=== PATIENT | female | born 1950 | race Caucasian/White ===

== ENCOUNTER 2022-09-21 15:30 | Emergency (ER) | payer OTHER ==
--- OUTSIDE RECORDS SUMMARY | 2022-09-21 15:33 | XMS REPORT | Continuity of Care Document ---
:1950 Author Organization [facility] Address [address] [place] [id number] Care Team Providers Name Role Phone Randall Attending Clinician Unavailable Randall Admitting Clinician Unavailable Payers Payer Name Policy Type Policy Number Effective Date Expiration Date S awa MEDICARE [place]: [id number] 2014 [employer] 00:00:00 [employer] [id number] [employer] (MEDICARE SUPPLEMENT) Problems This patient has no known problems. Allergies, Adverse Reactions, Alerts This patient has no known allergies or adverse reactions. Medications This patient has no known medications. Procedures This patient has no known procedures. Encounters Start End Encounter Admission Attending Care Care Encounter Source Date/Time Date/Time Type Type Clinicians Facility Department ID 2020-02-11 2020-02-11 Outpatient [id number] [place] 02:39:00 02:39:00 [id number] Results This patient has no known results.
--- NOTE | 2022-09-21 16:23 | RAD REPORT ---
EXAM DESCRIPTION: Stast Single View09/21/2022 4:13 pm CLINICAL HISTORY: CHEST PAIN COMPARISON: Chest Pa And Lat (2 Views) dated 02/09/2020; Chest Pa And Lat (2 Views) dated 05/06/2019; CHEST PA AND LAT 2 VIEW dated 12/24/2012 TECHNIQUE: Portable AP view of the chest. FINDINGS: The lungs are clear apart from mild left basilar atelectasis or early airspace disease. N o pneumothorax or effusion. The cardiomediastinal contours are unremarkable. IMPRESSION: Mild left basilar atelectasis or early airspace disease. No other acute cardiopulmonary process.
[2022-09-21 16:58] LABS: Absolute Lymphocytes (CBC) 1.2 K/uL (0.7-4.9); Hematocrit 44.6 % (36.0-45.0); Lymphocytes % 13.4 % (15.3-44.8); MPV 7.4 fL (7.6-11.3); RBC Red Blood Cell Count 4.85 M/uL (3.86-4.86)
[2022-09-21] MEDS ORDERED: MAGNES/ALUMIN/SIMET 30ML UCUP ONE (16:58)
[2022-09-21] MEDS ORDERED: NA CHLORIDE 0.9% 500 ML ONE (16:59)
[2022-09-21] MEDS ORDERED: PANTOPRAZOLE 40 MG INJ ONE (16:59)
[2022-09-21] MEDS ORDERED: ONDANSETRON 4 MG/2 ML VIAL ONE (16:59)
[2022-09-21] MEDS ORDERED: MORPHINE 4 MG/ML SYR ONE ×2 (16:59→19:59)
[2022-09-21 17:01] LABS: Protime INR 0.83
[2022-09-21 17:14] LABS: Albumin 3.9 g/dL (3.4-5.0); Bilirubin Direct 0.3 mg/dL (0-0.2); Bilirubin Indirect, Calculated 0.9 mg/dL (0.2-0.8); Bilirubin Total 1.2 mg/dL (0.2-1.0); Protein, Total 7.8 g/dL (6.4-8.2); Troponin High Sensitivity 3.8 pg/mL (<58.9)
--- NOTE | 2022-09-21 19:08 | RAD REPORT ---
EXAM DESCRIPTION: CT - Angio Aorta For Dissection - 09/21/2022 5:58 pm CLINICAL HISTORY: chest pain/abd pain COMPARISON: No comparisons TECHNIQUE: Dynamically enhanced 3 mm thick images of the chest, abdomen, and upper pelvis were obtai emily during administration of approximately 100mL Isovue 370 IV contrast. Sagittal and coronal reconst ructions as well as maximal intensity projection reconstruction were generated and reviewed per an [facility] angiography protocol. All CT scans are performed using dose optimization technique as appropriate and may include automated exposure control or mA/KV adjustment according to patient size. FINDINGS: Aorta is normal in diameter with no dissection or other acute aortic findings. Reconstruct ion images show no significant findings. Pulmonary arteries are normal as well. No mass or infiltrate in the lung parenchyma. No pleural thickening, pleural effusion or pneumothorax . No abnormal mediastinal or hilar mass or lymphadenopathy seen. Mildly prominent posterior mediastinal lymph nodes, nonspecific, and likely reactive. No chest wall mass or abnormal axillary lymphadenopat hy. Celiac, SMA and renal arteries show no suspicious findings. Mild fluid filling of the cecum and mild wall prominence along the ascending colon, nonspecific, of may relate to mild colitis or diarrheal st ate. Solid abdominal viscera and bowel show no other significant findings. No mass or abnormal lympha denopathy. IMPRESSION: No acute abnormalities on CT angiogram of the aorta. Mild fluid filling of the cecum and mild wall prominence along the ascending colon, nonspecific, of m ay relate to mild colitis or diarrheal state. Nonspecific mildly prominent posterior mediastinal lymph nodes, nonspecific, and likely reactive.
--- NOTE | 2022-09-21 19:42 | EDPHYS ---
Physician Documentation [facility] Name: Se Sandoval Age: 71 yrs Sex: Female : 1950 Arrival Date: 09/21/2022 Time: 15:30 Bed 8 Private MD: ED Physician Scar Almaguer HPI: 09/21 16:01 This 71 yrs old Female presents to ER via Ambulatory with complaints of Abd pain, Chest rn Pain. 16:01 The patient or guardian reports chest pain that is located primarily in the substernal rn area. Onset: yesterday. 16:01 The patient presents with abdominal pain in the epigastric area. Onset: The rn symptoms/episode began/occurred yesterday. The symptoms radiate to chest. Associated signs and symptoms: Pertinent positives: nausea, Pertinent negatives: blood in stools, fever, shortness of breath, vomiting blood. The symptoms are described as achy. Modifying factors: The symptoms are alleviated by nothing, the symptoms are aggravated by swallowing. Severity of pain: At its worst the pain was moderate in the emergency department the pain is unchanged. The patient has not experienced similar symptoms in the past. The patient has been recently seen by a physician:. Pt reports abdominal pain that began yesterday, radiates into chest, assoc with nausea. No vomiting. [facility] and thought to be gastroenteritis, sent zofran that is helping a little. Reports pain with swallowing. No blood in stool. No diarrhea. . Historical: - Allergies: 15:55 No Known Allergies; nj1 - PMHx: 15:55 Hypercholesterolemia; Depressive disorder; Sleep apnea; Insomnia; nj1 - PSHx: 15:55 Partial hysterectomy; Deviated septum surgery; nj1 - Immunization history:: Client reports having NOT received the Covid vaccine. - Social history:: Smoking status: Patient denies any tobacco usage or history of. - Family history:: not pertinent. - Hospitalizations: : No recent hospitalization is reported. ROS: 16:01 Constitutional: Negative for fever, chills, and weight loss, Eyes: Negative for injury, rn pain, redness, and discharge, Cardiovascular: + chest pain Respiratory: Negative for shortness of breath, cough, wheezing, and pleuritic chest pain, Abdomen/GI: + abd pain and nausea MS/Extremity: Negative for injury and deformity, Skin: Negative for injury, rash, and discoloration, Neuro: Negative for headache, weakness, numbness, tingling, and seizure. Exam: 16:01 Constitutional: This is a well developed, well nourished patient who is awake, alert, rn and in no acute distress. Head/Face: Normocephalic, atraumatic. Cardiovascular: Tachycardic, regular. No pulse deficits. Respiratory: No increased work of breathing, no retractions or nasal flaring. Abdomen/GI: soft, + epigastric tenderness Skin: Warm, dry MS/ Extremity: Pulses equal, no cyanosis. Neuro: Awake and alert, GCS 15 Vital Signs: 15:45 BP 121 / 81; Pulse 104; Resp 18; Temp 98.5; Pulse Ox 100% ; Weight 62.14 kg; Height 5 nj1 ft. 4 in. ; Pain 1/10; 17:05 BP 128 / 80; Pulse 98; Resp 19; Pulse Ox 98% on R/A; iw 18:31 BP 140 / 80; Pulse 97; Resp 16; Pulse Ox 98% on R/A; iw 20:02 BP 140 / 85; Pulse 89; Resp 16; Pulse Ox 98% on R/A; kl 15:45 Body Mass Index 23.51 (62.14 kg, 162.56 cm) nj1 15:45 Pain Scale: Adult nj1 MDM: 15:38 Patient medically screened. rn 19:38 Differential diagnosis: cholecystitis, Cholelithiasis, gastritis, gastroesophageal rn reflux disease, non-specific abd pain, pancreatitis, Peptic Ulcer Disease, Perf. Duodenal Ulcer, Perf. Gastric Ulcer. Data reviewed: vital signs, nurses notes, lab test result(s), radiologic studies, CT scan, ultrasound, and as a result, I will discharge patient. Counseling: I had a detailed discussion with the patient and/or guardian regarding: the historical points, exam findings, and any diagnostic results supporting the discharge/admit diagnosis, lab results, radiology results, the need for outpatient follow up, to return to the emergency department if symptoms worsen or persist or if there are any questions or concerns that arise at home. 19:40 Response to treatment: the patient's symptoms have mildly improved after treatment, and rn as a result, I will discharge patient. Special discussion: Based on the patient's history, exam, and Dx evaluation, there is no indication for emergent intervention or inpatient Tx. It is understood by the patient/guardian that if the Sx's persist or worsen they need to return immediately for re-evaluation. Based on the patient's Hx, exam, and Dx evaluation, there is no indication for emergent surgery or inpatient Tx. It is understood by the patient/guardian that if the Sx's persist or worsen they need to return immediately for re-evaluation. I discussed with the patient/guardian in detail that at this point there is no indication for admission to the hospital. It is understood, however, that if the symptoms persist or worsen the patient needs to return immediately for re-evaluation. ED course: No acute findings in imaging other than possible colitis. Story consistent with possible gastritis/duodenitis. U/S neg for acute gallbladder findings. Will dc home with abx for colitis, prn zofran, prn pain meds, and protonix prescription. . 19:46 ED course: Prescriptions given to to take to pharmacy before pharmacy closes. . 09/21 15:38 Order name: Basic Metabolic Panel; Complete Time: 17:09/21 15:38 Order name: CBC with Diff; Complete Time: 17:09/21 15:38 Order name: LFT's; Complete Time: 17:09/21 15:38 Order name: NT PRO-BNP; Complete Time: 17:09/21 15:38 Order name: PT-INR; Complete Time: 17:09/21 15:38 Order name: Troponin HS; Complete Time: 17:09/21 15:38 Order name: XRAY Chest (1 view); Complete Time: 17:09/21 15:57 Order name: CT Aorta for Dissection; Complete Time: 19:09/21 17:26 Order name: US Abdomen Limited; Complete Time: 19:44 09/21 15:38 Order name: EKG; Complete Time: 15:39 09/21 15:38 Order name: EKG - Nurse/Tech; Complete Time: 16:09/21 15:38 Order name: IV Saline Lock; Complete Time: 17:09/21 15:38 Order name: Labs collected and sent; Complete Time: 17:09/21 15:38 Order name: O2 Per Protocol; Complete Time: 17: rn 09/21 15:38 Order name: O2 Sat Monitoring; Complete Time: 17:05 rn Administered Medications: 17:04 Drug: Pantoprazole IVP 40 mg Route: IVP; Site: right antecubital; iw 20:01 Follow up: Response: No adverse reaction kl 17:05 Drug: morphine IVP or IV 4 mg Route: IVP; Infused Over: 4 mins; Site: right antecubital;iw 17:05 Drug: Ondansetron IVP 4 mg Route: IVP; Site: right antecubital; iw 17:05 Drug: NS 0.9% IV 500 ml Route: IV; Rate: bolus; Site: right antecubital; iw 17:13 Not Given (viscous lidocaine unavailablee): GI Cocktail without - (Maalox PO iw Suspension 30 ml, Lidocaine Mucous Membrane Liquid 2 % 15 ml) PO once 17:13 Drug: Alum-Mag Hydroxide-Simeth PO Suspension (200 mg-200 mg-20 mg/5 mL) 30 ml Route: iw PO; 17:42 Follow up: Response: No adverse reaction iw 20:01 Drug: morphine IVP or IV 4 mg Route: IVP; Infused Over: 4 mins; Site: right antecubital;kl Disposition Summary: 09/21/22 19:42 Discharge Ordered Location: Home rn Problem: new rn Symptoms: have improved rn Condition: Stable rn Diagnosis - Upper abdominal pain, unspecified rn - Acute gastritis without bleeding rn - Infectious gastroenteritis and colitis, unspecified rn Followup: rn - With: Real Hooper MD - When: As needed - Reason: Recheck today's complaints, Re-evaluation by your physician Discharge Instructions: - Discharge Summary Sheet rn - Abdominal Pain, Adult rn - Gastritis, Adult rn - Gastroesophageal Reflux Disease, Adult rn - Colitis rn Forms: - Medication Reconciliation Form rn - Thank You Letter rn - [employer] finance accounting internship - Prescription Opioid Use rn - [email or web address] rn Prescriptions: - ondansetron 4 mg Oral Tablet,disintegrating - take 1 tablet by ORAL route every 8 hours As needed; 15 tablet; Refills: 0, rn Product Selection Permitted - Flagyl 500 mg Oral Tablet - take 1 tablet by ORAL route every 8 hours for 10 days; 30 tablet; Refills: 0, rn Product Selection Permitted - Protonix 40 mg Oral Tablet - take 1 tablet by ORAL route once daily; 30 tablet; Refills: 0, Product rn Selection Permitted - Cipro 500 mg Oral Tablet - take 1 tablet by ORAL route every 12 hours for 10 days; 20 tablet; Refills: 0, rn Product Selection Permitted - Tramadol 50 mg Oral Tablet - take 1 tablet by ORAL route every 8 hours as needed; 12 tablet; Refills: 0, rn Product Selection Permitted Signatures: Dispatcher [employer] Brenna Lan RN RN kl Williams, Irene, RN RN iw Nieto, Roman, MD MD rn Jaco, Norma, RN RN nj1
--- NOTE | 2022-09-21 19:42 | ER ---
Nurse's Notes [facility] Name: Se Sandoval Age: 71 yrs Sex: Female : 1950 Arrival Date: 09/21/2022 Time: 15:30 Bed 8 Private MD: Diagnosis: Upper abdominal pain, unspecified;Acute gastritis without bleeding;Infectious gastroenteritis and colitis, unspecified Presentation: 09/21 15:45 Chief complaint: Patient states: Chest pain since last night, worse today, seems to go nj1 away at times, worsens when swallowing. Pt states she was having abdominal pain Sunday, had a tele consult yesterday, advised to come to ED if worse. Coronavirus screen: Vaccine status: Patient reports being unvaccinated. Ebola Screen: Patient denies travel to an Ebola-affected area in the 21 days before illness onset. Initial Sepsis Screen: Does the patient meet any 2 criteria? HR > 90 bpm. No. Patient's initial sepsis screen is negative. Does the patient have a suspected source of infection? No. Patient's initial sepsis screen is negative. Risk Assessment: Do you want to hurt yourself or someone else? Patient reports no desire to harm self or others. Onset of symptoms was September 17, 2022. 15:45 Method Of Arrival: Ambulatory [facility] 15:45 Acuity: DAHLIA 3 [facility] Historical: - Allergies: 15:55 No Known Allergies; nj1 - PMHx: 15:55 Hypercholesterolemia; Depressive disorder; Sleep apnea; Insomnia; nj1 - PSHx: 15:55 Partial hysterectomy; Deviated septum surgery; [facility] - Immunization history:: Client reports having NOT received the Covid vaccine. - Social history:: Smoking status: Patient denies any tobacco usage or history of. - Family history:: not pertinent. - Hospitalizations: : No recent hospitalization is reported. Screenin:32 [facility] ED Fall Risk Assessment (Adult) History of falling in the last 3 months, iw including since admission Score/Fall Risk Level 0 - 2 = Low Risk. Abuse screen: Denies threats or abuse. Denies injuries from another. Nutritional screening: No deficits noted. Tuberculosis screening: No symptoms or risk factors identified. Assessment: 17:30 Reassessment: Patient appears in no apparent distress at this time. Patient and/or iw family updated on plan of care and expected duration. Pain level reassessed. Patient is alert, oriented x 3, equal unlabored respirations, skin warm/dry/pink. 20:04 Reassessment: Patient appears in no apparent distress at this time. Patient states kl feeling better. Patient states symptoms have improved. Vital Signs: 15:45 BP 121 / 81; Pulse 104; Resp 18; Temp 98.5; Pulse Ox 100% ; Weight 62.14 kg; Height 5 nj1 ft. 4 in. ; Pain 1/10; 17:05 BP 128 / 80; Pulse 98; Resp 19; Pulse Ox 98% on R/A; iw 18:31 BP 140 / 80; Pulse 97; Resp 16; Pulse Ox 98% on R/A; iw 20:02 BP 140 / 85; Pulse 89; Resp 16; Pulse Ox 98% on R/A; kl 15:45 Body Mass Index 23.51 (62.14 kg, 162.56 cm) nj1 15:45 Pain Scale: Adult [facility] ED Course: 15:33 Patient arrived in ED. im 15:38 Scar Almaguer MD is Attending Physician. rn 15:51 Triage completed. nj1 15:52 Arm band placed on left wrist. nj1 16:15 XRAY Chest (1 view) In Process Unspecified. EDMS 16:26 Angélica Higginbotham, MICHELLE is Primary Nurse. iw 16:30 Radiology exam delayed due to lab results not completed at this time. (BUN/Creatinine) [id number] IV insertion attempt and/or patient not having appropriate IV at this time. 16:40 Initial lab(s) drawn, by me, sent to lab. Inserted saline lock: 20 gauge in right in iw left Blood collected. 18:00 CT Aorta for Dissection In Process Unspecified. EDMS 18:32 Patient has correct armband on for positive identification. Pulse ox on. NIBP on. iw 18:32 No provider procedures requiring assistance completed. Patient maintains SpO2 iw saturation greater than 95% on room air. 18:56 US Abdomen Limited In Process Unspecified. EDMS 19:41 Real Hooper MD is Referral Physician. rn 20:02 IV discontinued, intact, bleeding controlled, No redness/swelling at site. Pressure kl dressing applied. Administered Medications: 17:04 Drug: Pantoprazole IVP 40 mg Route: IVP; Site: right antecubital; iw 20:01 Follow up: Response: No adverse reaction kl 17:05 Drug: morphine IVP or IV 4 mg Route: IVP; Infused Over: 4 mins; Site: right antecubital;iw 17:05 Drug: Ondansetron IVP 4 mg Route: IVP; Site: right antecubital; iw 17:05 Drug: NS 0.9% IV 500 ml Route: IV; Rate: bolus; Site: right antecubital; iw 17:13 Not Given (viscous lidocaine unavailablee): GI Cocktail without - (Maalox PO iw Suspension 30 ml, Lidocaine Mucous Membrane Liquid 2 % 15 ml) PO once 17:13 Drug: Alum-Mag Hydroxide-Simeth PO Suspension (200 mg-200 mg-20 mg/5 mL) 30 ml Route: iw PO; 17:42 Follow up: Response: No adverse reaction iw 20:01 Drug: morphine IVP or IV 4 mg Route: IVP; Infused Over: 4 mins; Site: right antecubital; Outcome: 19:42 Discharge ordered by . rn 20:03 Discharged to home ambulatory. kl 20:03 Condition: stable 20:03 Discharge instructions given to patient, Instructed on discharge instructions, follow up and referral plans. medication usage, Demonstrated understanding of instructions, follow-up care, medications, Prescriptions given X 4. 20:09 Patient left the ED. Signatures: Dispatcher [employer] EDMS Brenna Quintero RN RN kl Williams, Irene, RN RN Scar Almaguer MD MD rn Galvan, Juliet [id number] Gay Galvan RN RN nj Blanche Rice Corrections: (The following items were deleted from the chart) 15:51 15:43 Chief complaint: nj1 nj1 15:52 15:45 BP 104 / 82; Pulse 104bpm; Resp 18bpm; Pulse Ox 100%; Temp 98.5F; 62.14 kg; nj1 Height 5 ft. 4 in.; BMI: 23.5; Pain 04/04, Adult; nj1
--- NOTE | 2022-09-21 19:43 | RAD REPORT ---
EXAM DESCRIPTION: US - Abdomen Exam Limited - 09/21/2022 6:54 pm CLINICAL HISTORY: ABD PAIN COMPARISON: Abdomen Exam Complete dated 09/15/2020 TECHNIQUE: Sonographic grayscale and color flow images of the right upper abdominal quadrant were obtained. FINDINGS: Periportal echogenicities within the visualized aspects of the liver. The gallbladder demo nstrates no gallstones. No pericholecystic fluid or gallbladder wall thickening. The common bile duct is normal measuring 5 mm. The liver demonstrates no findings of intrahepatic biliary dilatation. IMPRESSION: Periportal echogenicities within the visualized aspects of the liver, may be seen in the setting of hepatitis. Clinical and lab correlation recommended.
[2022-09-21 21:10] VITALS: TEMP 98.5
[2022-09-21 21:12] VITALS: O2SAT 98
[2022-09-21 21:16] VITALS: BP 140/85
--- NOTE | 2022-09-22 08:49 | EKG ---
Test Date: 2022-09-21 Test Time: 16:05:37 Behavioral Health Associate: [facility] MEASUREMENT RESULTS: Intervals: Rate: 99 CO: 136 QRSD: 68 QT: 324 QTc: 415 [place]: P: 34 CO: 136 QRS: 49 T: 47 INTERPRETIVE STATEMENTS: Normal sinus rhythm Normal ECG No previous ECG available for comparison Electronically Signed On 09-22-22 08:47:45 CDT by Fab Avalos
== END 2022-09-21 20:09 | disposition home or self-care (01) ==
LOC: ER 15:30
DX: K29.00 Acute gastritis without bleeding (principal); A09 Infectious gastroenteritis and colitis, unspecified
CPT/HCPCS: 93005; 85025; 80048; 36415; 85610; 80076; 84484; 83880; 71275; 74175; 71045; 76705; 96375; 96374; 99285; Q9967; C9113; J2405; J7040